=== PATIENT | male | born 1940 | race Two or more races ===

== ENCOUNTER 2019-11-21 19:35 | Emergency (ER) | payer MEDICARE ==
[~2019-11-21] VITALS: Ht 157.5 cm; Wt 74.8 kg
[2019-11-21 19:50] VITALS: BP 160/96
--- NOTE | 2019-11-21 19:50 | NUR ---
ED Nurse Note: pt walked into ED from home c/o of discomfort in right ear and says there is cotton stuck in ear and unable to take out. Pt denies pain, fever, chills, or drainage from ear.
[2019-11-21] MEDS ORDERED: AUGMENTIN 875-1 EAC1 ORAL (20:04)
--- NOTE | 2019-11-21 20:12 | Emergency Room Report ---
History of Present Illness General Chief Complaint: Foreign Body Source: Patient Present Illness HPI Disclaimer: Please note that this report is being documented using [employer] technology. This can lead to erroneous entry secondary to incorrect interpretation by the dictating instrument. HPI: 79-year-old male presents for evaluation of foreign body in right ear. Patient states he has been treated for an otitis externa with medicated drops but does not specify which. He applies the drops and then applies a cottonball to the right ear. He feels that not all the cotton was removed today. Denies changes in his hearing, pain, drainage, facial swelling, fever, chills. He does report recent congestion and runny nose. PMH: Reviewed PSH: Reviewed Allergies: Aspirin Social Hx: Reviewed Allergies: Coded Allergies: ASPIRIN (Verified Allergy, Unknown, 11/21/19) COVID-19 Screening Contact w/high risk pt: No Experienced COVID-19 symptoms?: No COVID-19 Testing performed [employer]: No Nursing Documentation-PMH Hx Cardiac Problems: Yes Hx Hypertension: Yes - hdl Review of Systems All Other Systems: negative except mentioned in HPI Physical Exam Vital Signs Date Time Temp Pulse Resp B/P (MAP) Pulse Ox O2 Delivery O2 Flow Rate FiO2 11/21/19 19:43 98.8 86 14 160/96 (117) 97 Room Air General: Awake and alert, no acute distress HEENT: NC/AT. EOMI. left tympanic membrane is pearly hairston nonbulging, no exudate, no external swelling, no drainage. No identified foreign body in the right auditory canal. Tympanic membrane is opacified, bulging with an effusion in the lower portion. Mildly erythematous. No drainage in the external auditory canal. No surrounding edema or erythema in the external canal. No tenderness over the mastoids or the parotids. Resp: Normal work of breathing Skin: Intact. No abrasions, laceration or rash over the exposed skin MSK: Normal tone and bulk. Moving all extremities. No obvious deformity. Neuro: Awake and alert. Mentating appropriately Medical Decision Making Diagnostic Impression: Primary Impression: Otitis media ER Course Is a 79-year-old male presenting for evaluation for body sensation right ear. No identified foreign body though it does appear he has an otitis externa given the bulging opacified tympanic membrane with effusion as well. He has had recent nasal congestion. We will start the patient on Augmentin. We will follow up with his PMD. Instructed to return with new or worsening symptoms. He understands and agrees with his treatment plan. Last Vital Signs Date Time Temp Pulse Resp B/P (MAP) Pulse Ox O2 Delivery O2 Flow Rate FiO2 11/21/19 19:50 98.8 67 14 160/96 97 Room Air Disposition: HOME, SELF-CARE Condition: Stable Scripts Amoxicillin/Potassium Clav 875-125* (AUGMENTIN 875-125 TABLET*) 1 Each Tablet 1 TAB ORAL TWICE A DAY for 7 Days, #14 TAB Prov: Guillermo Royal MD 11/21/19 Referrals: [facility] Patient Instructions: Otitis Media, Adult Additional Instructions: Please follow-up with your primary care doctor in the next 1 to 3 days to discuss this emergency department visit and for reevaluation. If you have any new or worsening symptoms please return to the emergency department for reevaluation. Please note that this report is being documented using [employer] technology. This can lead to erroneous entry secondary to incorrect interpretation by the dictating instrument. Guillermo Royal MD Nov 21, 2019 20:12
[2019-11-21 20:13] VITALS: BP 137/78
--- NOTE | 2019-11-21 20:13 | NUR ---
ER DISCHARGE NOTE: Patient is cleared to be discharged per ERMD. Discharge paperwork and paper prescriptions given, pt verbalized unserstanding. Pt ID band removed. Pt is able to ambulate with steady gait. pt took all belongings.
== END 2019-11-21 20:13 | disposition home or self-care (01) ==
LOC: EMR 20:00
DX: H66.91 Otitis media, unspecified, right ear (principal); E78.5 Hyperlipidemia, unspecified; I10 Essential (primary) hypertension; Z88.6 Allergy status to analgesic agent
CPT/HCPCS: 99282